=== PATIENT | female | born 1975 | race Caucasian/White ===

== ENCOUNTER 2018-07-04 09:01 | Outpatient (CLI) | payer BC ==
--- NOTE | 2018-07-04 09:46 | ULT ---
THYROID ULTRASOUND: Date: 07/04/18 HISTORY: Goiter. Enlarged thyroid. FINDINGS: Real-time imaging of the right and left lobes of the thyroid were performed. The right lobe measures 1.3 x 1.5 x 5.4 cm. The left lobe measures 1.0 x 1.5 x 4.3 cm. Gland is heterogeneous. On the right side, within the upper pole region, is a 5.0 x 9.0 mm isoechoic, wider than tall, nodule . Margins are somewhat ill-defined. No other definitive discrete nodules are seen, although there are some areas of heterogeneity in both the right and left lobes. I am not even certain that the area in the upper pole region of the right lobe is truly a thyroid nodule. There is increased vascularity to the gland. IMPRESSION: Heterogeneous gland as discussed above. POS: [facility]
== END 2018-07-04 09:02 | disposition home or self-care (01) ==
LOC: BICULT 09:01
PROVIDERS: ATTEND Otolaryngology Plastic Surgery within the Head & Neck
DX: E04.9 Nontoxic goiter, unspecified (principal); E07.9 Disorder of thyroid, unspecified
CPT/HCPCS: 76536